=== PATIENT | female | born 1970 | race Caucasian/White ===

== ENCOUNTER 2016-12-04 11:38 | Outpatient (CLI) ==
[2015-09-30 19:24] VITALS: BMI 30.7
[2016-12-04 12:47] LABS: BASOPHILS % (AUTO) 0.5 % (0.0-3.0); EOSINOPHILS # (AUTO) 0.3 K/ul (0.0-0.7); EOSINOPHILS % (AUTO) 3.3 % (0.0-7.0); HEMATOCRIT 44.1 % (37.0-47.0); HEMOGLOBIN 14.5 g/dl (12.0-16.0); IMMATURE GRANULOCYTE % (AUTO) 0.4 % (0.0-5.0); LYMPHOCYTES # (AUTO) 1.2 K/uL (0.60-3.4); LYMPHOCYTES % (AUTO) 15.5 (10.0-50.0); MEAN CORPUSCULAR HEMOGLOBIN 30.9 pg (27.0-31.0); MEAN CORPUSCULAR HGB CONC 32.9 (31.8-35.4); MONOCYTES # (AUTO) 0.4 K/uL (0.4-2.0); MONOCYTES % (AUTO) 5.3 (0-10); NEUTROPHILS # (AUTO) 5.8 K/ul (2.0-6.9); PLATELET COUNT 310 10^3/uL (140-440); RED BLOOD COUNT 4.69 10^6/ul (4.20-5.40); WHITE BLOOD COUNT 7.69 K/ul (4.6-10.2)
[2016-12-04 13:31] LABS: ALBUMIN 3.5 g/dL (3.4-5.0); ALBUMIN/GLOBULIN RATIO 1.06; ANION GAP 11.2; BILIRUBIN,TOTAL 0.57 mg/dL (0.00-1.20); BUN/CREATININE RATIO 15.15; CHOL/HDL RATIO 2.8 (4.5-5.5); CREATININE 0.66 mg/dL (0.60-1.30); POTASSIUM 4.2 mmol/L (3.5-5.10); TOTAL PROTEIN 6.8 g/dL (6.4-8.2)
== END 2016-12-04 11:39 | disposition home or self-care (01) ==
LOC: LAB 11:38
PROVIDERS: ATTEND Nurse Practitioner Family
DX: K21.9 Gastro-esophageal reflux disease without esophagitis (principal); E75.6 Lipid storage disorder, unspecified
CPT/HCPCS: 36415; 80053; 80061; 84439; 84443; 85025

== ENCOUNTER 2017-03-13 00:05 | Emergency (ER) ==
[2017-03-13] MEDS ORDERED: ZANTAC PO STA (00:12)
[2017-03-13] MEDS ORDERED: ADRENALIN 1:1000 SDV IM STA (00:12)
[2017-03-13] MEDS ORDERED: SOLU-MEDROL 125 MG IM STA (00:12)
[2017-03-13] MEDS ORDERED: CLARITIN PO STA (00:13)
--- NOTE | 2017-03-13 00:16 | ED.PDOC ---
General ED Provider: Dr. CONTRERAS MCKEON Chief Complaint: Rash Stated Complaint: patient states she was pulling weeds two days ago then today notice a rash on extremities and upper chest. The rash has been itchy and now burnig with welps. Also has a sun burn on the back. Time Seen by Physician: 00:14 Mode of Arrival: Walk-In Information Source: Patient, Family Exam Limitations: No limitations Primary Care Provider: CHRIS HARDIN Nursing and Triage Documentation Reviewed and Agree: Yes Skin Complaint Exam - Skin Rash/Itching Complaint/Exam Onset/Duration: 2 days Symptoms Are: Still present Initial Severity: Moderate Current Severity: Severe Location: Neck. Upper extremities Potential Exposures: Reports: Plants (poison ana maria) Prior Treatment: Bendaryl Aggravating: Reports: Showering, Heat Alleviating: Reports: None Associated Signs and Symptoms: Denies: Difficulty breathing, Fever, Chills Skin Findings: Present: Urticaria Body Picture: 1 - urticarial rash 2 - urticarial rash 3 - erythematous rash Differential Diagnoses: Allergic Reaction, Contact Dermatitis Review of Systems - Review Of Systems Constitutional: Reports: No symptoms Eyes: Reports: No symptoms Ears, Nose, Mouth, Throat: Reports: No symptoms Respiratory: Reports: No symptoms Cardiac: Reports: No symptoms GI: Reports: Nausea : Reports: No symptoms Musculoskeletal: Reports: No symptoms Skin: Reports: Rash Neurological: Reports: Anxiety Endocrine: Reports: No symptoms Hematologic/Lymphatic: Reports: No symptoms All Other Systems: Reviewed and Negative Past Medical History - Past Medical History Previously Healthy: Yes Endocrine: Reports: None Cardiovascular: Reports: None Respiratory: Reports: None Hematological: Reports: None Gastrointestinal: Reports: None Genitourinary: Reports: None Neuro/Psych: Reports: None Musculoskeletal: Reports: None Cancer: Reports: None - Surgical History General Surgical History: Reports: Unknown - Family History Family History: Reports: Unknown - Social History Smoking Status: Never smoker Hx Substance Use: No Alcohol Screening: None Physical Exam - Physical Exam Appearance: Ill-appearing Ill-appearing: Moderate Eyes: DENNY, EOMI, Conjunctiva clear ENT: Ears normal, Nose normal, Oropharynx normal Respiratory: Airway patent, Breath sounds clear, Breath sounds equal, Respirations nonlabored Cardiovascular: RRR, Pulses normal, No rub, No murmur GI/: Soft, Nontender, No masses, Bowel sounds normal, No Organomegaly Musculoskeletal: Normal strength, ROM intact, No edema, No calf tenderness Skin: Warm, Dry Neurological: Sensation intact, Motor intact, Reflexes intact, Cranial nerves intact, Alert, Oriented Psychiatric: Anxious Critical Care Note - Critical Care Note Total Time (mins): 0 Course - Course Orders, Labs, Meds: Orders Category Date Time Status Epinephrine Amp [Epinephrine 1:1,000 Amp] MEDS 03/13/17 00:23 Discontinued 1 mg .ROUTE .STK-MED ONE Epinephrine [Adrenalin 1:1000 Sdv] MEDS 03/13/17 00:12 Discontinued 0.3 mg IM ONCE STA Loratadine [Claritin] MEDS 03/13/17 00:13 Discontinued 10 mg PO ONCE STA Methylprednisolone Sod Succ/Pf [Solu-Medrol 125 mg] MEDS 03/13/17 00:12 Discontinued 125 mg IM ONCE STA Ranitidine HCl [Zantac] MEDS 03/13/17 00:12 Discontinued 300 mg PO ONCE STA Medications Discontinued Medications Generic Name Dose Route Start Last Admin Trade Name Timq PRN Reason Stop Dose Admin Epinephrine HCl 0.3 mg 03/13/17 00:12 03/13/17 00:34 Adrenalin 1:1000 Sdv IM 03/13/17 00:13 0.3 mg ONCE STA Administration Loratadine 10 mg 03/13/17 00:13 03/13/17 00:33 Claritin PO 03/13/17 00:14 10 mg ONCE STA Administration Methylprednisolone Sodium Succinate 125 mg 03/13/17 00:12 03/13/17 00:33 Solu-Medrol 125 Mg IM 03/13/17 00:13 125 mg ONCE STA Administration Ranitidine HCl 300 mg 03/13/17 00:12 03/13/17 00:33 Zantac PO 03/13/17 00:13 300 mg ONCE STA Administration Vital Signs: Temp Pulse Resp BP Pulse Ox 03/13/17 00:06 99.5 F 90 20 139/83 99 Departure - Departure Time of Disposition: 00:59 Disposition: HOME SELF-CARE Discharge Problem: Poison ana maria dermatitis Instructions: Urticaria (ED), Poison Ana Maria (ED) Condition: Stable Pt referred to PMD for follow-up: Yes Additional Instructions: Avoid Poison ANA MARIA Take Medrol dose pack as prescribed Continue over the counter Benadryl, Zantac and claritin. Follow up with PCP in 3 days Prescriptions: Methylprednisolone [Medrol Dosepak] 4 mg PO DIRECTED #1 pkg Allergies/Adverse Reactions: Allergies morphine Allergy (Severe, Verified 03/13/17 00:19) hives Pt notified to buy medical alert necklace Home Medications: Ambulatory Orders Biotin 1 mg PO DAILY 02/14/14 Calcium Carbonate/Vitamin D3 [Calcium 500 + Vit D 200 Caplet] 1 each PO TID Vit B12/Pyridoxine/Thiamine [Pv Neuro Donis Tablet] 1 each PO d 07/28/14 Ascorbic Acid [Vitamin C] 100 mg PO DAILY 07/10/15 Multivitamin [Multi-Vitamin Daily] 1 each PO DAILY 07/10/15 Progesterone,Micronized [Progesterone] 200 mg PO DAILY 10/15/15 Amitriptyline HCl 25 mg PO BEDTIME 12/04/16 Cyclobenzaprine HCl 10 mg PO TID 12/04/16 Estradiol 5 mg PO d 12/04/16 Gabapentin 200 mg PO BID 12/04/16 Methylprednisolone [Medrol Dosepak] 4 mg PO DIRECTED #1 pkg 03/13/17 Omeprazole [Prilosec] 20 mg PO QDAC 03/13/17 Oxycodone HCl/Acetaminophen [Percocet 5-325 mg Tablet] 1 tab PO TID 03/13/17 Disposition Discussed With: Patient, Family
[2017-03-13 00:19] VITALS: BP 139/83; TEMP 99.5; BMI 27.4
[2017-03-13] MEDS ORDERED: EPINEPHRINE 1:1,000 AMP ONE (00:23)
== END 2017-03-13 01:31 | disposition home or self-care (01) ==
LOC: ED 00:05
DX: L23.7 Allergic contact dermatitis due to plants, except food (principal)
CPT/HCPCS: 96372; 99283

== ENCOUNTER 2017-06-14 12:53 | Emergency (ER) ==
[2017-06-14 12:53] VITALS: BMI 27.4
[2017-06-14 12:56] VITALS: BP 131/84; TEMP 97.9
--- NOTE | 2017-06-14 12:59 | ED.PDOC ---
General ED Provider: Dr. ERIKA CERVANTES-ER Chief Complaint: Tooth Problem Stated Complaint: my tooth is swollen and painful--i go to pain management but the percocet 5mg is not helping my pain Time Seen by Physician: 12:58 Mode of Arrival: Walk-In Information Source: Patient Exam Limitations: No limitations [facility] Nursing and Triage Documentation Reviewed and Agree: Yes EENT Complaint Exam - Dental/Oral Complaint/Exam Mechanism of Injury: No known trauma Onset/Duration: 2 days Symptoms Are: Still present Timing: Constant Initial Severity: Mild Current Severity: Mild Location: right upper premolar Character: Reports: Dull, Aching, Throbbing Aggravating: Reports: Heat, Cold, Chewing Alleviating: Reports: None Associated Signs and Symptoms: Reports: Swelling, Discharge. Denies: Fever, Foul odor, Foul taste in mouth Related History: Reports: Previous tooth problem Tooth Findings: Present: Percussion tenderness Cervical Lymphadenopathy Present: No Facial Swelling Present: No Bleeding Present: No Oropharynx Findings: Absent: Clots, Active bleeding Septal Hematoma: No Foreign Body Present: No Dysphagia Present: No Drooling Present: No Asymmetrical Tonsillar Swelling Present: No Uvula Midline: Yes Светлана-tonsillar Fluctuence: No Trismus Present: No Palatal Petechiae Present: No Scarlatinaform Rash Present: No Differential Diagnoses: Dental Abcess Review of Systems - Review Of Systems Constitutional: Reports: No symptoms Eyes: Reports: No symptoms Ears, Nose, Mouth, Throat: Reports: Mouth pain, Mouth swelling Respiratory: Reports: No symptoms Cardiac: Reports: No symptoms GI: Reports: No symptoms : Reports: No symptoms Musculoskeletal: Reports: No symptoms Skin: Reports: No symptoms Neurological: Reports: No symptoms Endocrine: Reports: No symptoms Hematologic/Lymphatic: Reports: No symptoms All Other Systems: Reviewed and Negative Past Medical History - Past Medical History Previously Healthy: Yes Endocrine: Reports: None Cardiovascular: Reports: None Respiratory: Reports: None Hematological: Reports: None Gastrointestinal: Reports: None Genitourinary: Reports: None Neuro/Psych: Reports: None Musculoskeletal: Reports: None Cancer: Reports: None Last Menstrual Period: TOTAL HYSTERECTOMY - Surgical History General Surgical History: Reports: Unknown - Family History Family History: Reports: Unknown - Social History Smoking Status: Never smoker Hx Substance Use: No Alcohol Screening: None Physical Exam - Physical Exam Appearance: Well-appearing, No pain distress, Well-nourished Pain Distress: Moderate Eyes: DENNY ENT: Ears normal, Oropharynx normal (right upper premolar is tender and swollen) Neck: Supple Respiratory: Airway patent Cardiovascular: RRR GI/: Soft Musculoskeletal: Normal strength, ROM intact, No edema, No calf tenderness Skin: Warm, Dry, Normal color Neurological: Sensation intact Psychiatric: Affect appropriate, Mood appropriate Critical Care Note - Critical Care Note Total Time (mins): 0 Course - Course Vital Signs: Temp Pulse Resp BP Pulse Ox 06/14/17 12:53 97.9 F 84 20 131/84 96 Departure - Departure Time of Disposition: 13:00 Disposition: HOME SELF-CARE Discharge Problem: Toothache Instructions: Dental Abscess (ED) Condition: Good Pt referred to PMD for follow-up: Yes Additional Instructions: percocet 7.5mg q 4hrs prn pain #5--clindamycin 150mg tid x 7 days--f/u dentist james Allergies/Adverse Reactions: Allergies morphine Allergy (Severe, Verified 06/14/17 12:56) hives Pt notified to buy medical alert necklace Home Medications: Ambulatory Orders Biotin 1 mg PO DAILY 02/14/14 Calcium Carbonate/Vitamin D3 [Calcium 500 + Vit D 200 Caplet] 1 each PO TID Vit B12/Pyridoxine/Thiamine [Pv Neuro Donis Tablet] 1 each PO d 07/28/14 Ascorbic Acid [Vitamin C] 100 mg PO DAILY 07/10/15 Multivitamin [Multi-Vitamin Daily] 1 each PO DAILY 07/10/15 Progesterone,Micronized [Progesterone] 200 mg PO DAILY 10/15/15 Amitriptyline HCl 25 mg PO BEDTIME 12/04/16 Cyclobenzaprine HCl 10 mg PO TID 12/04/16 Estradiol 5 mg PO d 12/04/16 Gabapentin 200 mg PO BID 12/04/16 Methylprednisolone [Medrol Dosepak] 4 mg PO DIRECTED #1 pkg 03/13/17 Omeprazole [Prilosec] 20 mg PO QDAC 03/13/17 Oxycodone HCl/Acetaminophen [Percocet 5-325 mg Tablet] 1 tab PO TID 03/13/17 Carafate 1 gm PO PRN 03/18/17 Disposition Discussed With: Patient
== END 2017-06-14 13:00 | disposition home or self-care (01) ==
LOC: ED 12:53
DX: K08.89 Other specified disorders of teeth and supporting structures (principal)
CPT/HCPCS: 99283